=== PATIENT | male | born 1965 | race Caucasian/White ===

== ENCOUNTER 2023-02-18 16:45 | Outpatient (CLI) | payer OTHER ==
[2023-02-18 21:19] LABS: THYROID STIMULATING HORMONE 0.91 uIU/mL (0.34-5.60)
[2023-02-18 21:20] LABS: FREE T3 3.43 pg/mL (2.5-3.9)
[2023-02-18 21:21] LABS: FREE T4 (FREE THYROXINE) 1.01 ng/dL (0.58-1.64)
== END 2023-02-18 17:00 | disposition home or self-care (01) ==
LOC: LAB.N 16:45
PROVIDERS: ATTEND Registered Nurse
DX: M54.2 Cervicalgia (principal); R22.1 Localized swelling, mass and lump, neck
CPT/HCPCS: 36415; 84439; 84443; 84481

== ENCOUNTER 2023-03-03 21:04 | Outpatient (CLI) | payer OTHER ==
--- NOTE | 2023-03-04 12:26 | Ultrasound Report ---
PROCEDURE: Head or Neck Soft Tissue INDICATIONS: THROAT SWELLING TECHNIQUE: Real-time scanning was performed of the thyroid gland, with image documentation. COMPARISON: None FINDINGS: Right: Thyroid lobe measures 5.3 x 1.5 x 1.6 cm, and is homogeneous in echotexture. Left: Thyroid lobe measures 4.3 x 1.9 x 1.9 cm, and is homogenous in echotexture. Isthmus: 3 mm thick. No thyroid nodules present. Normal cervical lymph nodes present without adenopathy IMPRESSION: Normal ultrasound of the thyroid Reviewed by: Nilson Yost MD on 03/04/2023 11:24 AM [facility] Approved by: Nilson Yost MD on 03/04/2023 11:24 AM [facility] Station ID: [id number]
== END 2023-03-03 21:05 | disposition home or self-care (01) ==
LOC: DI 21:04
PROVIDERS: ATTEND Registered Nurse
DX: R22.1 Localized swelling, mass and lump, neck (principal); M54.2 Cervicalgia

== ENCOUNTER 2024-08-05 08:00 | Outpatient (CLI) | payer MEDICARE, OTHER | END 2024-08-05 23:59 | disposition home or self-care (01) | LOC: LAB.N 08:00 | PROVIDERS: ATTEND Physician Assistant Medical | DX: L08.9 Local infection of the skin and subcutaneous tissue, unspecified (principal) | CPT/HCPCS: 87070; 87205 ==